=== PATIENT | female | born 1975 | race Caucasian/White ===

== ENCOUNTER 2020-10-07 18:55 | Emergency (ER) | payer BC ==
[2020-10-07] MEDS ORDERED: NS IV 1000 ML 1,000 ML IV SCH (19:00)
[2020-10-07] MEDS ORDERED: KETOROLAC 30 MG/ML VIAL IVP ONE (19:00)
[2020-10-07] MEDS ORDERED: oxyCODONE/APAP 5/325MG (PERCOCET 5) TABLET PO ONE (19:00)
[2020-10-07 19:12] LABS: BASOPHILS % (AUTO) 0 % (0-10); EOSINOPHILS % (AUTO) 0 % (0-10); HEMATOCRIT 38 % (35-52); HEMOGLOBIN 12.7 g/dL (11.5-16.0); LYMPHOCYTES # (AUTO) 1.6 10^3/uL (1.0-4.0); LYMPHOCYTES % (AUTO) 12 % (12-44); MEAN CORPUSCULAR HEMOGLOBIN 31 pg (25-34); MEAN CORPUSCULAR HGB CONC 33 g/dL (32-36); MEAN CORPUSCULAR VOLUME 94 fL (80-99); MEAN PLATELET VOLUME 10.1 fL (9.0-12.2); MONOCYTES # (AUTO) 0.7 10^3/uL (0.0-1.0); MONOCYTES % (AUTO) 6 % (0-12); NEUTROPHILS # (AUTO) 11.1 10^3/uL (1.8-7.8); NEUTROPHILS % (AUTO) 82 % (42-75); PLATELET COUNT 228 10^3/uL (130-400); WHITE BLOOD COUNT 13.6 10^3/uL (4.3-11.0)
--- NOTE | 2020-10-07 19:12 | ED GU-Female ---
General Stated Complaint: KIDNEY STONE Source: patient Exam Limitations: no limitations History of Present Illness Date Seen by Provider: Oct 07, 2020 Time Seen by Provider: 19:10 Initial Comments To ER from [facility] urgent care with worsening left flank pain. this pain began rather suddenly during the middle of the night last night. Was seen at [facility] urgent care today and had lab work done and a CT which showed a stone 3 mm at the left UVJ. She was given tramadol. When the nurse practitioner from [facility] urgent care called her with results of the CT scan patient reported worsening pain and so she was advised to come to the emergency room. She states that 30 minutes ago her pain was nearly unbearable but at this time she is almost pain-free. Timing/Duration: just prior to arrival Severity/Quality: moderate Location: unknown Radiation: none Activities at Onset: none Prior Genitourinary Problems: none Associated Symptoms: dysuria Allergies and Home Medications Allergies Coded Allergies: No Known Drug Allergies (Unverified , 10/07/20) Patient Home Medication List Home Medication List Reviewed: Yes Review of Systems Review of Systems Constitutional: see HPI EENTM: see HPI Respiratory: no symptoms reported Cardiovascular: no symptoms reported Genitourinary: no symptoms reported Musculoskeletal: no symptoms reported Skin: no symptoms reported Psychiatric/Neurological: No Symptoms Reported Endocrine: No Symptoms Reported Past Pdtaimk-Avneqs-Jqzlsm Hx Patient Social History Recent Foreign Travel: No Contact w/Someone Who Travel: No Physical Exam Vital Signs Vital Signs - First Documented 10/07/20 18:58 Temp 36.0 Pulse 75 Resp 16 B/P (MAP) 168/106 (126) O2 Delivery Room Air Capillary Refill : Height, Weight, BMI Height: '" Weight: lbs. oz. kg; BMI Method: General Appearance: WD/WN, no apparent distress Neck: non-tender, full range of motion Respiratory: no respiratory distress, no accessory muscle use Gastrointestinal: normal bowel sounds, non tender, soft Neurologic/Psychiatric: alert, normal mood/affect, oriented x 3 Skin: normal color, warm/dry Progress/Results/Core Measures Suspected Sepsis SIRS Temperature: Pulse: Respiratory Rate: Laboratory Tests 10/07/20 19:00: White Blood Count 13.6H Blood Pressure / Mean: Laboratory Tests 10/07/20 19:00: Creatinine 1.20, Platelet Count 228, Total Bilirubin 0.5 Results/Orders Lab Results Laboratory Tests Test 10/07/20 19:00 Range/Units White Blood Count 13.6 H 4.3-11.0 10^3/uL Red Blood Count 4.09 3.80-5.11 10^6/uL Hemoglobin 12.7 11.5-16.0 g/dL Hematocrit 38 35-52 % Mean Corpuscular Volume 94 80-99 fL Mean Corpuscular Hemoglobin 31 25-34 pg Mean Corpuscular Hemoglobin Concent 33 32-36 g/dL Red Cell Distribution Width 11.9 10.0-14.5 % Platelet Count 228 130-400 10^3/uL Mean Platelet Volume 10.1 9.0-12.2 fL Immature Granulocyte % (Auto) 0 % Neutrophils (%) (Auto) 82 H 42-75 % Lymphocytes (%) (Auto) 12 12-44 % Monocytes (%) (Auto) 6 0-12 % Eosinophils (%) (Auto) 0 0-10 % Basophils (%) (Auto) 0 0-10 % Neutrophils # (Auto) 11.1 H 1.8-7.8 10^3/uL Lymphocytes # (Auto) 1.6 1.0-4.0 10^3/uL Monocytes # (Auto) 0.7 0.0-1.0 10^3/uL Eosinophils # (Auto) 0.0 0.0-0.3 10^3/uL Basophils # (Auto) 0.0 0.0-0.1 10^3/uL Immature Granulocyte # (Auto) 0.1 0.0-0.1 10^3/uL Urine Color YELLOW Urine Clarity CLEAR Urine pH 5.0 5-9 Urine Specific [place] <=1.005 1.016-1.022 Urine Protein NEGATIVE NEGATIVE Urine Glucose (UA) NEGATIVE NEGATIVE Urine Ketones TRACE H NEGATIVE Urine Nitrite NEGATIVE NEGATIVE Urine Bilirubin NEGATIVE NEGATIVE Urine Urobilinogen 0.2 < = 1.0 MG/DL Urine Leukocyte Esterase NEGATIVE NEGATIVE Urine RBC (Auto) 1+ H NEGATIVE Urine RBC NONE /HPF Urine WBC NONE /HPF Urine Squamous Epithelial Cells 10-25 H /HPF Urine Crystals NONE /LPF Urine Bacteria TRACE /HPF Urine Casts NONE /LPF Urine Mucus NEGATIVE /LPF Urine Culture Indicated NO Sodium Level 128 L 135-145 MMOL/L Potassium Level 4.1 3.6-5.0 MMOL/L Chloride Level 96 L 98-107 MMOL/L Carbon Dioxide Level 20 L 21-32 MMOL/L Anion Gap 12 5-14 MMOL/L Blood Urea Nitrogen 13 7-18 MG/DL Creatinine 1.20 0.60-1.30 MG/DL Estimat Glomerular Filtration Rate 48 BUN/Creatinine Ratio 11 Glucose Level 108 H 70-105 MG/DL Calcium Level 9.0 8.5-10.1 MG/DL Corrected Calcium 8.7 8.5-10.1 MG/DL Total Bilirubin 0.5 0.1-1.0 MG/DL Aspartate Amino Transf (AST/SGOT) 28 5-34 U/L Alanine Aminotransferase (ALT/SGPT) 23 0-55 U/L Alkaline Phosphatase 63 40-136 U/L Total Protein 8.1 6.4-8.2 GM/DL Albumin 4.4 3.2-4.5 GM/DL My Orders Orders - KEIKO HUDSON APRN Cbc With Automated Diff (10/07/20 18:57) Comprehensive Metabolic Panel (10/07/20 18:57) Ed Iv/Invasive Line Start (10/07/20 18:57) Ketorolac Injection (Toradol Injection) (10/07/20 19:00) Ua Culture If Indicated (10/07/20 18:57) Oxycodone/Apap 5/325mg Tablet (Percocet (10/07/20 19:00) Ns Iv 1000 Ml (Sodium Chloride 0.9%) (10/07/20 19:00) Tamsulosin Capsule (Flomax Capsule) (10/07/20 19:15) Ondansetron Injection (Zofran Injectio (10/07/20 19:32) Ondansetron Injection (Zofran Injectio (10/07/20 19:45) Promethazine Injection (Phenergan Injec (10/07/20 20:30) Ns (Ivpb) (Sodium Chloride 0.9%) (10/07/20 20:30) Medications Given in ED Current Medications Medications Dose Ordered Sig/Juanita Route Start Time Stop Time Status Last Admin Dose Admin Ketorolac Tromethamine 30 mg ONCE ONCE IVP 10/07/20 19:00 10/07/20 19:01 DC 10/07/20 19:15 30 MG Ondansetron HCl 8 mg ONCE ONCE IVP 10/07/20 19:45 10/07/20 19:46 DC 10/07/20 19:40 8 MG Promethazine HCl 12.5 mg ONCE ONCE IVP 10/07/20 20:30 10/07/20 20:31 DC 10/07/20 20:30 12.5 MG Sodium Chloride 250 ml @ 999 mls/hr Q16M ONCE IV 10/07/20 20:30 10/07/20 20:45 DC 10/07/20 20:30 999 MLS/HR Vital Signs/I&O 10/07/20 18:58 Temp 36.0 Pulse 75 Resp 16 B/P (MAP) 168/106 (126) O2 Delivery Room Air Capillary Refill : Departure Impression Primary Impression: Left UVJ stone Disposition: HOME, SELF-CARE Condition: Stable Departure-Patient Inst. Decision time for Depature: 19:11 Referrals: ROMAN KAISER DO (PCP/Family) Primary Care Physician KEVIN FALLON MD Patient Instructions: Kidney Stone, Adult ED Add. Discharge Instructions: 1. Increase fluid intake. Pain medication as directed. Return to ER for any concerns. Follow-up with Dr. KAISER next week. Scripts Tamsulosin HCl (Flomax) 0.4 Mg Cap 0.4 MG PO DAILY, #14 CAP Prov: KEIKO HUDSON [employer] 10/07/20 Promethazine HCl (Promethazine Tablet) 25 Mg Tablet 25 MG PO Q8H PRN for NAUSEA/VOMITING, #10 TAB Prov: KEIKO HUDSON [employer] 10/07/20 KEIKO HUDSON [employer]VER Oct 07, 2020 19:12
[2020-10-07 19:13] LABS: BILIRUBIN,URINE NEGATIVE (NEGATIVE); CLARITY,URINE CLEAR; COLOR,URINE YELLOW; GLUCOSE, URINE (UA) NEGATIVE (NEGATIVE); KETONES,URINE TRACE (NEGATIVE); LEUKOCYTE ESTERASE ,URINE NEGATIVE (NEGATIVE); NITRITE,URINE NEGATIVE (NEGATIVE); PROTEIN,URINE NEGATIVE (NEGATIVE)
[2020-10-07] MEDS ORDERED: TAMSULOSIN 0.4 MG (FLOMAX) CAP PO SCH (19:15)
[2020-10-07 19:22] LABS: BACTERIA,URINE TRACE /HPF
[2020-10-07 19:31] LABS: ALBUMIN 4.4 GM/DL (3.2-4.5); BILIRUBIN,TOTAL 0.5 MG/DL (0.1-1.0); CREATININE SERUM 1.2 MG/DL (0.60-1.30); POTASSIUM 4.1 MMOL/L (3.6-5.0); TOTAL PROTEIN 8.1 GM/DL (6.4-8.2)
[2020-10-07] MEDS ORDERED: ONDANSETRON 4 MG/2 ML (SDV) Z0FRAN ONE (19:32)
[2020-10-07] MEDS ORDERED: ONDANSETRON 4 MG/2 ML (SDV) Z0FRAN IVP ONE (19:45)
[2020-10-07] MEDS ORDERED: PROMETHAZINE INJ 25 MG/ML (PHENERGAN) AMP IVP ONE (20:30)
[2020-10-07] MEDS ORDERED: NS (IVPB) 250 ML IV ONE (20:30)
[2020-10-07] MEDS ORDERED: TMSL.4C PO (21:29)
[2020-10-07] MEDS ORDERED: PROM25TA14 PO (21:29)
[2020-10-07 21:39] VITALS: BP 135/89
== END 2020-10-07 21:40 | disposition home or self-care (01) ==
LOC: EDUNIT# 18:55 → EDBD 18:56 → ER 18:56
DX: N13.2 Hydronephrosis with renal and ureteral calculous obstruction (principal)
CPT/HCPCS: 36415; 80053; 81000; 85025

== ENCOUNTER → 2020-10-07 | Outpatient (CLI) | payer BC ==
[~2020-10-07] MED LIST: DIATRIZOATE MEGLUM/SODIUM 37% 120 ML (GASTROGRAFIN) PO ONE; HOLD METFORMIN - RECEIVED CONTRAST 20 ML VIAL IV SCH; IOHEXOL 350 MG/ML 100 ML (OMNIPAQUE 350) VIAL IV ONE; NS 100 ML (IVPB) BAG IV ONE; PROM25TA14 PO; TMSL.4C PO
--- NOTE | 2020-10-07 18:14 | Diagnostic Imaging Report ---
INDICATION: Abdominal pain. TECHNIQUE: Precontrast acquisitions were acquired through the abdomen and pelvis. Multiple contiguous axial images were obtained through the abdomen and pelvis after the administration of intravenous contrast. Auto Exposure Controls were utilized during the CT exam to meet ALARA standards for radiation dose reduction. COMPARISON: There is no prior study for comparison. The visualized portions of the lung bases are clear. There is no pleural fluid collection. There is no free intraperitoneal air. The liver and gallbladder appear normal. The spleen, adrenals and pancreas are normal. The right kidney appears normal. Left kidney shows perinephric edema and hydronephrosis. There is hydronephrosis and hydroureter on the left side, down to the level of a 3 mm stone at the left UVJ. There is no retroperitoneal mass or adenopathy. There is no ascites or abnormal fluid collection. Visualized bowel loops appear unremarkable. There is an enhancing lesion in the uterus to the left of midline, superiorly, likely a fibroid lesion, measuring about 2.2 cm. There is no sign of bowel obstruction. IMPRESSION: There is left hydronephrosis and perinephric edema, secondary to a 3 mm stone at the left UVJ. There is no other acute finding. There is an incidental probable fibroid in the left side of the uterus. Dictated by: Dictated on workstation # [id number]
== END ==
LOC: EDBD → RAD 16:47
PROVIDERS: ATTEND Nurse Practitioner Family
DX: N13.2 Hydronephrosis with renal and ureteral calculous obstruction (principal); D72.828 Other elevated white blood cell count; N30.01 Acute cystitis with hematuria; E78.5 Hyperlipidemia, unspecified
CPT/HCPCS: 74178